=== PATIENT | female | born 1965 | race Asian ===

== ENCOUNTER 2016-12-09 09:41 | Observation (INO) | payer OTHER ==
--- NOTE | 2016-12-09 10:03 | CPEKG ---
Heart Rate: 59 RR Interval: 1017 P-R Interval: 160 QRSD Interval: 94 QT Interval: 408 QTC Interval: 405 P [place]: 61 QRS [place]: 42 T Wave Rising [place]: -30 EKG Severity - BORDERLINE ECG - EKG Impression: SINUS RHYTHM EKG Impression: BORDERLINE T ABNORMALITIES, DIFFUSE LEADS Electronically Signed By: Tyson Curtis 09-Dec-2016 10:35:34
[2016-12-09 10:31] LABS: % IMMATURE GRANULYOCYTES 0.4 % (0.0-1.1); ABSOLUTE IMMATURE GRANULOCYTES 0.02 10^3/uL (0.00-0.10); ADD DIFF? NO; ADD MORPH? NO; ADD SCAN? NO; ATYPICAL LYMPHOCYTE FLAG 10 (0-99); FRAGMENT RBC FLAG 0 (0-99); HEMATOCRIT 40.8 % (38.0-47.0); HEMOGLOBIN 13.1 g/dL (12.6-16.3); LEFT SHIFT FLG 0 (0-99); LIPEMIA HEMOLYSIS FLAG 80 (0-99); MEAN CELL HEMOGLOBIN 27.3 pg (27.9-34.1); MEAN CELL HEMOGLOBIN CONCENTR. 32.1 g/dL (32.4-36.7); MEAN PLATELET VOLUME 9.5 fL (8.7-11.7); PLATELET CLUMPS FLAG 10 (0-99); PLATELET COUNT 251 10^3/uL (150-400); RED CELL DISTRIBUTION WIDTH 13.2 % (11.5-15.2)
[2016-12-09 10:43] LABS: ANION GAP 11 mEq/L (8-16); CALCIUM 9.7 mg/dL (8.5-10.4); CARBON DIOXIDE 28 mEq/l (22-31); CHLORIDE 103 mEq/L (97-110); CREATININE 0.7 mg/dL (0.6-1.0); GLOMERULAR FILTRATION RATE > 60; GLUCOSE 87 mg/dL (70-100); POTASSIUM 3.7 mEq/L (3.5-5.2); SODIUM 142 mEq/L (134-144)
[2016-12-09] MEDS ORDERED: LIDOCAINE 2% VISCOUS 15 ML UDCUP PO ONE (10:45)
[2016-12-09] MEDS ORDERED: MAG HYDROX/AL HYDROX/SIMETH 30 ML UDCUP PO ONE (10:45)
[2016-12-09] MEDS ORDERED: HYOSCYAMINE SULFATE 0.125 MG TAB PO ONE (10:45)
[2016-12-09 10:56] LABS: TROPONIN I < 0.012 ng/mL (0-0.034)
--- NOTE | 2016-12-09 11:17 | EDPHY ---
H & P Stated Complaint: 2 weeks of CP after internastional travel, epigastric pain HPI/ROS: CHIEF COMPLAINT: Chest Pain HISTORY OF PRESENT ILLNESS: Patient complains of several days duration of chest pain. It is retrosternal chest pain. It is a burning sensation. Worse with exertion and associated with some shortness of breath. No lower extremity erythema edema or pain. No abdominal discomfort. No diaphoresis, nausea vomiting. She did return from a long flight from [place] on November 25. The symptoms have developed over the course of the last 2 weeks. No previous incidence of coronary artery disease or PE. She did have an angiogram in 2005 during a repair of an atrial septal defect. No other associated complaints or modifying factors. 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 No wheezing, rhonchi or crackles. Cardiovascular: Regular rate and rhythm. No murmur. Pulses intact distally. Gastrointestinal: Abdomen is soft and nontender Back: non-tender, no bony abnormalities Neurological: A&O, nonfocal, normal gait Skin: Warm and dry, no rash Extremities: Nontender, no pedal edema Psychiatric: Mood and affect normal DIFFERENTIAL DIAGNOSES: Including but not limited to in no particular order: Acute Chest Pain, ACS, Stable Angina, Pneumonia, PE, duodenitis, gastritis, esophagitis, GERD MDM: 10:30 a.m. Retrosternal chest pain that has been present for 3-4 days without cessation. It is exertional and does have some mild dyspnea. Given her recent travel to [place], I have ordered a D-dimer, a BNP. Troponin was already ordered prior to my arrival. EKG was already performed and is negative. I have also ordered a chest x-ray. I suspect this is more likely related to reflux or coronary artery disease and less likely PE. 11:15 a.m. Troponin D-dimer negative. Chest x-ray is clear. I have discussed the case with Dr. Curtis. He will personally evaluate the patient in the emergency department. 11:35 a.m. I discussed case with hospitalist Laura Lipscomb. She is happy to admit the patient but asked that I discuss with cardiology prior to proceeding to see if they prefer to keep her as their patient. 11:45 a.m. I discussed this case with [facility]. She has discussed the case with Dr. Urbina says that he would be happy to provide consultation but prefers that the patient be admitted to the hospitalist. 11:55 a.m. I discussed case with the hospitalist again, Laura Lipscomb. She will admit the patient to Dr. Rodgers. She has requested a PCU bed, observation status. Patient is admitted in stable condition. EKG: Interpreted by Dr. Curtis Normal sinus rhythm. No acute ischemia SUPERVISION: Patient was evaluated in conjunction with the supervising physician. Please see their note for details. Source: Patient, Family Exam Limitations: No limitations - Personal History Current Tetanus/Diphtheria Vaccine: Yes Current Tetanus Diphtheria and Acellular Pertussis (TDAP): Yes - Medical/Surgical History Hx Asthma: No Hx Chronic Respiratory Disease: No Hx Diabetes: No Hx Cardiac Disease: No Hx Renal Disease: No Hx Cirrhosis: No Hx Alcoholism: No Hx HIV/AIDS: No Hx Splenectomy or Spleen Trauma: No Other PMH: MIGRAINES, ATRIAL SEPTAL DEFECT REPAIR IN 2005 - Social History Smoking Status: Never smoked Constitutional: Initial Vital Signs Temperature (C) 97.7 F 12/09/16 09:46 Heart Rate 78 12/09/16 09:46 Respiratory Rate 16 12/09/16 09:46 Blood Pressure 166/107 H 12/09/16 09:46 O2 Sat (%) 98 12/09/16 09:46 O2 Delivery Mode Room Air Allergies/Adverse Reactions: No Known Allergies Allergy (Unverified 07/06/13 09:04) Home Medications: Medication Instructions Recorded Aspirin [Aspir 81] 07/06/13 ZOLMitriptan [Zomig 2.5MG (RX)] 07/06/13 Medical Decision Making - Diagnostics Imaging Results: Imaging Impressions Chest X-Ray 12/09/16 10:45 Impression: Borderline cardiac enlargement, otherwise, negative chest. An intracardiac device is identified. - Data Points Laboratory Results: Laboratory Results 12/09/16 10:10 12/09/16 10:10 12/09/16 12/09/16 12/09/16 10:45 10:10 10:10 WBC 4.92 10^3/uL 10^3/uL (3.80-9.50) RBC 4.80 10^6/uL 10^6/uL (4.18-5.33) Hgb 13.1 g/dL g/dL (12.6-16.3) Hct 40.8 % % (38.0-47.0) MCV 85.0 fL fL (81.5-99.8) MCH 27.3 pg L pg (27.9-34.1) MCHC 32.1 g/dL L g/dL (32.4-36.7) RDW 13.2 % % (11.5-15.2) Plt Count 251 10^3/uL 10^3/uL (150-400) MPV 9.5 fL fL (8.7-11.7) Neut % (Auto) 53.5 % % (39.3-74.2) Lymph % (Auto) 39.0 % % (15.0-45.0) [place] % (Auto) 5.1 % % (4.5-13.0) Eos % (Auto) 1.4 % % (0.6-7.6) Baso % (Auto) 0.6 % % (0.3-1.7) Nucleat RBC Rel Count 0.0 % % (0.0-0.2) Absolute Neuts (auto) 2.63 10^3/uL 10^3/uL (1.70-6.50) Absolute Lymphs (auto) 1.92 10^3/uL 10^3/uL (1.00-3.00) Absolute Monos (auto) 0.25 10^3/uL L 10^3/uL (0.30-0.80) Absolute Eos (auto) 0.07 10^3/uL 10^3/uL (0.03-0.40) Absolute Basos (auto) 0.03 10^3/uL 10^3/uL (0.02-0.10) Absolute Nucleated RBC 0.00 10^3/uL 10^3/uL (0-0.01) Immature Gran % 0.4 % % (0.0-1.1) Immature Gran # 0.02 10^3/uL 10^3/uL (0.00-0.10) D-Dimer 0.28 ug/mLFEU ug/mLFEU (0.00-0.50) Sodium 142 mEq/L mEq/L (134-144) Potassium 3.7 mEq/L mEq/L (3.5-5.2) Chloride 103 mEq/L mEq/L (97-110) Carbon Dioxide 28 mEq/l mEq/l (22-31) Anion Gap 11 mEq/L mEq/L (8-16) BUN 10 mg/dL mg/dL (7-23) Creatinine 0.7 mg/dL mg/dL (0.6-1.0) Estimated GFR > 60 Glucose 87 mg/dL mg/dL (70-100) Calcium 9.7 mg/dL mg/dL (8.5-10.4) Troponin I < 0.012 ng/mL ng/mL (0-0.034) NT-Pro-B Natriuret Pep 12/09/16 09:30 WBC RBC Hgb Hct MCV MCH MCHC RDW Plt Count MPV Neut % (Auto) Lymph % (Auto) [place] % (Auto) Eos % (Auto) Baso % (Auto) Nucleat RBC Rel Count Absolute Neuts (auto) Absolute Lymphs (auto) Absolute Monos (auto) Absolute Eos (auto) Absolute Basos (auto) Absolute Nucleated RBC Immature Gran % Immature Gran # D-Dimer Sodium Potassium Chloride Carbon Dioxide Anion Gap BUN Creatinine Estimated GFR Glucose Calcium Troponin I NT-Pro-B Natriuret Pep 30 pg/mL pg/mL (0-125) Medications Given: Discontinued Medications Al Hydroxide/Mg Hydroxide (Maalox Susp) 30 ml PO ONCE ONE Stop: 12/09/16 10:46 Last Admin: 12/09/16 10:53 Dose: 30 ml Hyoscyamine Sulfate (Levsin, Hyomax-Sl) 0.25 mg PO ONCE ONE Stop: 12/09/16 10:46 Last Admin: 12/09/16 10:53 Dose: 0.25 mg Lidocaine (Lidocaine 2% Viscous) 15 ml PO ONCE ONE Stop: 12/09/16 10:46 Last Admin: 12/09/16 10:53 Dose: 15 ml Departure - Departure Disposition: [facility] Inpatient Acute Clinical Impression: Chest pain Qualifiers: Chest pain type: unspecified Qualified Code(s): R07.9 - Chest pain, unspecified Condition: Good Referrals: Latha Bates MD [Primary Care Provider] - As per Instructions
[2016-12-09] MEDS ORDERED: ONDANSETRON 4 MG/2 ML VIAL IVP PRN (12:17)
[2016-12-09] MEDS ORDERED: HYDROCODONE/APAP 5/325 TAB PO PRN (12:17)
[2016-12-09] MEDS ORDERED: ONDANSETRON DISINTEGRATING 4 MG TAB PO PRN (12:17)
[2016-12-09] MEDS ORDERED: ACETAMINOPHEN 325 MG TAB PO PRN (12:17)
[2016-12-09] MEDS ORDERED: PANTOPRAZOLE SODIUM 40 MG TAB PO SCH (13:00)
[2016-12-09 13:17] VITALS: O2SAT 98
--- NOTE | 2016-12-09 13:47 | GHP ---
[f rep st] HISTORY AND PHYSICAL DATE OF ADMISSION: 12/09/2016 CHIEF COMPLAINT: Chest pain. HISTORY OF PRESENT ILLNESS: This is a 51-year-old female with a history of a repaired ASD and hyper lipidemia, who presents with complaints of burning chest pain intermittently for approximately 2 wee ks since returning from a trip to [place]. The patient reports being in her normal state of health p rior to travel, eating a very high fat content, unusually rich diet for herself while in [place], and then developing what she described as reflux symptoms after returning home, intermittent mid chest burning sensation, worse typically after the patient would eat meals. The patient then noted additi onal symptoms of some dyspnea on exertion while walking her dog as well as substernal chest pressure that began while climbing stairs the day of presentation. The patient decided to call her PCP afte r the constellation of these symptoms all grew. The patient denies any preceding history of chest p ain. Did have a cardiac catheterization with her ASD repair many years ago, and her coronary arteri es were clean at that time. The patient denies any vision changes, had 1 headache while she was on her trip. Otherwise has been headache free. Denies any subjective fevers or chills. She has had s ome odynophagia that she thinks is related to her reflux symptoms. Denies any nausea or vomiting. Denies any diarrhea, constipation, blood in her stools, dysuria, hematuria, lower extremity edema, n umbness, or tingling. The patient denies any palpitations, any orthopnea, or other episodes of subs ternal chest pressure with exertion. PAST MEDICAL HISTORY: 1. ASD, status post repair. 2. Migraine headaches. 3. Hyperlipidemia, diet controlled. 4. Cervical neck pain followed by Neurosurgery. Intermittently takes Neurontin. SOCIAL HISTORY: Negative for tobacco, alcohol, or illicit drugs. FAMILY HISTORY: Positive for coronary artery disease in her father and brothers, many of whom have undergone CABG in their 60s. REVIEW OF SYSTEMS: A 10-point review of systems is negative with the exception of that reported in the HPI. PHYSICAL EXAMINATION: VITAL SIGNS: Blood pressure 148/86, heart rate 59, respiratory rate 16, 97% on room air, 36.8. GENERAL: This is a healthy-appearing, middle-aged female, in no acute distress. HEENT: Notable for moist mucous membranes. Eye exam is negative for any icterus. CARDIAC: Mariana ent is regular rate and rhythm. No murmur appreciated. Question of a subtle splitting of the 2nd h eart sound. PULMONARY: Good respiratory effort. Clear to auscultation bilaterally. GASTROINTESTI NAL: Positive bowel sounds. ABDOMEN: Soft and nontender in all 4 quadrants. MUSCULOSKELETAL: Ne gative for any lower extremity edema. SKIN: Negative for any rashes. NEUROLOGIC: She is alert an d oriented x3. PSYCHIATRIC: She is pleasant and cooperative on interview and examination. DATA: White count 5.9, hematocrit 40.8, platelets 251. Creatinine is 0.7. Troponin less than 0.01 2. BNP of 30. EKG, which I personally reviewed and interpreted, shows sinus rhythm, normal axis wi th nonspecific ST-T flattening leads V2-5. Chest x-ray, which I personally reviewed and interpreted , shows no acute infiltrates or edema. Intracardiac device is noted. ASSESSMENT AND PLAN: This is a 51-year-old female, presenting with chest pain. 1. Acute chest pain. Based on the patient's history, I think there are 2 types of pain here. We n eed to address (1) that is burning and sounds more related to likely reflux and potentially her diet ulices changes recently. The second is the chest pressure brought on by exertion while the patient was ambulating up stairs the morning of presentation. This is associated with shortness of breath and certainly more concerning for possible angina. Plan to admit under observation status to the PCU fo r cardiac monitoring, serial troponins, and EKGs, and a transthoracic echocardiogram. Will addition ally treat with a GI cocktail and proton pump inhibitor. The patient is well known to [facility] and will be seen in consultation by Dr. Urbina who can make additional recommendations on the necessity of cardiac stress testing beyond a rule-out, and where that testing would most appropriately take place . 2. Migraine headaches. Patient is without symptoms at this time. 3. Hyperlipidemia. Patient is being followed closely by Dr. Bates in the outpatient setting and w talon will not check lipid studies here as we would not change her outpatient management. PROPHYLAXIS: Patient is ambulating. DIET: Cardiac. DISPOSITION: I expect in less than 2 midnights, if the patient's cardiac assessments are negative, potentially patient can be discharged later today. I have discussed the case with the emergency glenis m physician. The patient will be triaged to the PCU for care. /[id number]/MODL
[2016-12-09 15:09] VITALS: BP 125/76; PULSE 61; RESP 19; TEMP 97.9
--- NOTE | 2016-12-09 15:19 | ECHO ---
[id number] + + [address] : : [place] [address] : : [phone] + Adult Echocardiographic Report + ------+ :Name: ADELAIDE HUMPHRIES KStudy Date: 12/09/2016 01:30 PM : : Hospital Admission Number: [id number] Locatio n: 209: :: 1965 Gender: Female Height: 63 in : :Age: 51 yrs Race: Weight: 160 lb : :Reason For Study: Chest pain/SOB : : BSA: 1.8 meters 2 : :History: ASD closure : + ------+ MMode/2D Measurements \T\ Calculations IVSd: 0.94 cm LVIDd: 4.1 cm FS: 46.2 % Ao root diam: LVPWd: 0.97 cm LVIDs: 2.2 cm EDV(Teich): 3.1 cm 72.6 ml LA dimension: ESV(Teich): 3.1 cm 16.0 ml EF(Teich): 78.0 % LVLd ap4: 6.5 cm SV(MOD-sp4): EDV(MOD-sp4): 42.0 ml 60.0 ml LVLs ap4: 5.3 cm ESV(MOD-sp4): 18.0 ml EF(MOD-sp4): 70.0 % Normal Measurement Values: + + :LVIDd (3.5-5.7cm) IVSd (0.6-1.1cm) LVPWd (0.6-1.1cm) Aortic Root (2.0-3.7cm)Left Atrium (1.5-4.0cm): :LV Vol(d) (76-115ml) LV Vol(s) (29-48ml) Ejec Fraction (50-65%)PV Cristofer (0.6- 1.2m/s) TV Cristofer (0.4-1.0m/s) : :MV E Cristofer (0.8-1.0m/s)MV A Cristofer (0.3-1.0m/s)LVOT Cristofer (0.7-1.2m/s) Asc Ao Cristofer ( 0.9-1.8m/s) : + + Doppler Measurements \T\ Calculations MV A max cristofer: Ao V2 max: MR max cristofer: TR max cristofer: 79.5 cm/sec 109.9 cm/sec 74.5 cm/sec 191.4 cm/sec Ao max PG: MR max PG: TR max P.8 mmHg 2.2 mmHg 14.7 mmHg RAP systole: 5.0 mmHg RVSP(TR): 19.7 mmHg Left Ventricle The left ventricle is normal in size and function. There is normal left ventricular wall thickness. Left ventricular systolic function is normal. Ejection Fraction = 65-70%. No regional wall motion abnormalities noted. Right Ventricle The right ventricle is normal in size and function. Atria The left atrial size is normal. Right atrial size is normal. Amplatzer septal occluder is seen in the interatrial septum. There does not appear to be a residual shunt. Mitral Valve The mitral valve is normal in structure and function. There is no evidence of mitral valve prolapse. There is no mitral valve stenosis. There is trace mitral regurgitation. Tricuspid Valve Normal tricuspid valve. There is mild tricuspid regurgitation. Aortic Valve The aortic valve is trileaflet. The aortic valve opens well. There is no aortic stenosis. There is no aortic insufficiency. Pulmonic Valve The pulmonic valve is normal in structure and function. Trace pulmonic valvular regurgitation. Great Vessels The aortic root is normal size. Pericardium/Pleural There is no pericardial effusion. Conclusion A complete two-dimensional transthoracic echocardiogram was performed (2D, M-mode, Doppler and color flow Doppler). 1. The left ventricle is normal in size and function. The Ejection Fraction = 65-70%. 2. The aortic valve is normal in structure and function. 3. The mitral valve is normal in structure and function. 4. There is no pericardial effusion. 5. An Amplatzer septal occluder is seen in the interatrial septum. There does not appear to be a residual shunt. 6. The pulmonary artery pressure estimate is with in normal limits. Final Reading Physician: Dionte Elizabeth MD electronically signed on 12/09/2016 03:17 PM Ordering Physician: Nona Rodgers Performed By: Margy Linda, CS
--- NOTE | 2016-12-09 16:46 | PDCARCONS ---
Cardiology Consult Reason for Consult: Chest pain Chief Complaint: Heartburn Requesting Physician: Ana Maria History of Present Illness: 51-year-old female well known to me history of hypertriglyceridemia, history of ASD repair with a normal coronary angiogram 11 years ago presenting with several day history of heartburn with shortness of breath with exertion. This was most pronounced when going up a flight of stairs. She contacted her primary care physician's office who advised her to come the emergency department. She has had an extensive workup including a normal D-dimer, normal troponins x2 with a normal EKG and now a normal echocardiogram and I am asked to comment. Patient was recently traveling in [place] with a trip to [place]. She had significant dietary indiscretion there with increased alcohol intake as well as meet which she does not usually consume. She has been back and went back to work right away. She then began experiencing typical heartburn with burning up the esophagus. She began a proton pump inhibitor with some improvement in symptoms. The exertional shortness of breath began while walking the dog. She again had a pronounced episode when going up a flight of stairs. And she was concerned. She denies PND orthopnea. She denied palpitations syncope or near syncope. History Information - Allergies/Home Medication List Allergies/Adverse Reactions: No Known Allergies Allergy (Unverified 07/06/13 09:04) Home Medications: Aspirin [Aspirin 325 mg (*)] 325 mg PO HS 12/09/16 [Last Taken 12/08/16] Cholecalciferol Vit D3 [Vitamin D3 (*)] 1,000 units PO DAILY 12/09/16 [Last Taken Unknown] Estradiol [Estrace Vaginal (*)] 1 miguel VG MWF 12/09/16 [Last Taken 3 Weeks Ago] ZOLMitriptan [Zomig 2.5MG (*)] 5 mg PO DAILY PRN 12/09/16 [Last Taken 4 Days Ago ] I have personally reviewed and updated: family history, medical history, social history, surgical history - Family History Positive for: CAD. Negative for: father with history of CAD younger than 55 - Social History Smoking Status: Never smoked Alcohol Use: Occasionally Cardiac History - Cardiac History Past Cardiac History: OTHER (ASD repair) NAOMI Risk Evaluation age greater or equal to 65: no greater or equal to 3 CAD risk factors: no known CAD(stenosis greater or eqaul to 50%): no ASA use in past 7 days: no severe angina(greater or equal to 2 episodes in 24hrs): no EKG ST changes greater or equal to 0.5mm: no positive cardiac marker: no Total Score: 0 NAOMI Score: 4.7% risk Physical Exam Temp Pulse Resp BP Pulse Ox 36.6 C 61 19 125/76 H 98 12/09/16 15:08 12/09/16 15:08 12/09/16 15:08 12/09/16 15:08 12/09/16 15:08 Constitutional: no apparent distress, appears nourished Eyes: PERRL Ears, Nose, Mouth, Throat: moist mucous membranes Cardiovascular: regular rate and rhythym, no murmur, rub, or gallop, No systolic murmur, No JVD Peripheral Pulses: 2+: carotid (R), carotid (L), femoral (R), femoral (L) Respiratory: no respiratory distress, no rales or rhonchi Gastrointestinal: normoactive bowel sounds, soft, non-tender abdomen, no palpable masses Skin: warm, normal color Musculoskeletal: full muscle strength, no muscle tenderness Neurologic: AAOx3, sensation intact bilaterally, No weakness Psychiatric: interacting appropriately, not anxious Lymph, Heme, Immunologic: no cervical LAD, no supraclavicular LAD Lab and Imaging 12/09/16 10:10 12/09/16 10:10 WBC 4.92 10^3/uL (3.80-9.50) 12/09/16 10:10 RBC 4.80 10^6/uL (4.18-5.33) 12/09/16 10:10 Hgb 13.1 g/dL (12.6-16.3) 12/09/16 10:10 Hct 40.8 % (38.0-47.0) 12/09/16 10:10 MCV 85.0 fL (81.5-99.8) 12/09/16 10:10 MCH 27.3 pg (27.9-34.1) L 12/09/16 10:10 MCHC 32.1 g/dL (32.4-36.7) L 12/09/16 10:10 RDW 13.2 % (11.5-15.2) 12/09/16 10:10 Plt Count 251 10^3/uL (150-400) 12/09/16 10:10 MPV 9.5 fL (8.7-11.7) 12/09/16 10:10 Neut % (Auto) 53.5 % (39.3-74.2) 12/09/16 10:10 Lymph % (Auto) 39.0 % (15.0-45.0) 12/09/16 10:10 [place] % (Auto) 5.1 % (4.5-13.0) 12/09/16 10:10 Eos % (Auto) 1.4 % (0.6-7.6) 12/09/16 10:10 Baso % (Auto) 0.6 % (0.3-1.7) 12/09/16 10:10 Nucleat RBC Rel Count 0.0 % (0.0-0.2) 12/09/16 10:10 Absolute Neuts (auto) 2.63 10^3/uL (1.70-6.50) 12/09/16 10:10 Absolute Lymphs (auto) 1.92 10^3/uL (1.00-3.00) 12/09/16 10:10 Absolute Monos (auto) 0.25 10^3/uL (0.30-0.80) L 12/09/16 10:10 Absolute Eos (auto) 0.07 10^3/uL (0.03-0.40) 12/09/16 10:10 Absolute Basos (auto) 0.03 10^3/uL (0.02-0.10) 12/09/16 10:10 Absolute Nucleated RBC 0.00 10^3/uL (0-0.01) 12/09/16 10:10 Immature Gran % 0.4 % (0.0-1.1) 12/09/16 10:10 Immature Gran # 0.02 10^3/uL (0.00-0.10) 12/09/16 10:10 D-Dimer 0.28 ug/mLFEU (0.00-0.50) 12/09/16 10:45 Sodium 142 mEq/L (134-144) 12/09/16 10:10 Potassium 3.7 mEq/L (3.5-5.2) 12/09/16 10:10 Chloride 103 mEq/L (97-110) 12/09/16 10:10 Carbon Dioxide 28 mEq/l (22-31) 12/09/16 10:10 Anion Gap 11 mEq/L (8-16) 12/09/16 10:10 BUN 10 mg/dL (7-23) 12/09/16 10:10 Creatinine 0.7 mg/dL (0.6-1.0) 12/09/16 10:10 Estimated GFR > 60 12/09/16 10:10 Glucose 87 mg/dL (70-100) 12/09/16 10:10 Calcium 9.7 mg/dL (8.5-10.4) 12/09/16 10:10 Troponin I < 0.012 ng/mL (0-0.034) 12/09/16 15:35 NT-Pro-B Natriuret Pep 30 pg/mL (0-125) 12/09/16 09:30 Visualized and Interpreted Chest x-ray results: Yes Visualized and Interpreted EKG results: Yes EKG additional interpertation: Normal ECG Echocardiogram: Normal echocardiogram with ASD repair. No regional wall motion abnormalities A/P Assessment: 51-year-old female well known to or history of normal coronary arteries, history of ASD repair now with normal right ventricular size and function no regional wall motion abnormalities negative troponin and stable EKG. Clear history of dyspepsia likely secondary to dietary indiscretion recent travel. Exertional shortness of breath of uncertain etiology. No evidence of acute coronary syndrome based on 2-enzymes. Recommendations are for discharge from the hospital with outpatient treadmill testing. 30 days of proton pump inhibitor. Clinical follow-up Plan: Discharge from hospital. 30 days proton pump inhibitor. Outpatient stress testing. Past Medical History - Personal History Current Tetanus/Diphtheria Vaccine: Yes Current Tetanus Diphtheria and Acellular Pertussis (TDAP): Yes - Medical/Surgical History Hx Asthma: No Hx Chronic Respiratory Disease: No Hx Cardiac Disease: Yes Hx Diabetes: No Hx Renal Disease: No Hx Alcoholism: No Hx Cirrhosis: No Hx HIV/AIDS: No Hx Splenectomy or Spleen Trauma: No Other PMH: MIGRAINES, ATRIAL SEPTAL DEFECT REPAIR IN 2005, HDL - Social History Smoking Status: Never smoked Review of Systems - Review of Systems Constitutional: no symptoms reported EENTM: no symptoms reported Respiratory: shortness of breath Cardiac: no symptoms reported Gastrointestinal/Abdominal: other (Dyspepsia). denies: vomiting, black stools Genitourinary: no symptoms, see HPI Musculoskelatal: no symptoms Skin: no symptoms Neurological: no symptoms Hematologic/Lymphatic: no symptoms reported Immunologic/allergic: no symptoms reported
--- NOTE | 2016-12-09 16:57 | PDDCSUM ---
Discharge Summary Discharge Summary: Discharge note: Patient was admitted for observation today 12/09/2016 for an episode of chest discomfort. Discharge diagnosis: Dyspepsia likely esophagitis. Exertional shortness of breath of uncertain etiology. Medications: Olkk-eyk-hkkbdyl Prilosec nightly for 30 days. Follow-up [facility] this week for ETT. Procedures during this hospitalization echocardiogram revealing normal LV systolic function, ASD repair intact with normal right ventricular size and function. Hospital course: Patient was admitted with atypical chest pain described as dyspepsia over several days after recent trip to [place]. She ruled out for pulmonary embolic disease with negative D-dimer. She had an echocardiogram which did not reveal regional wall motion abnormalities and a intact ASD repair. She had serial cardiac enzymes which revealed no evidence of acute coronary syndrome with a stable EKG. With a GI cocktail and proton pump inhibitor her symptoms have resolved and she is ready for discharge. At the time of my examination her blood pressure was 125/65 heart rate was 70 oxygen saturation was 95% on room air. Her chest was clear cardiac exam revealed a regular rate and rhythm her abdomen was soft nontender with good bowel sounds there is no organomegaly extremities revealed no edema there is no calf tenderness her EKG was normal, troponins were normal and she was stable. She will be followed up with an outpatient treadmill encourage normal activity will pursue aggressive primary prevention with clinical follow-up.
== END 2016-12-09 17:41 | disposition home or self-care (01) ==
LOC: F2W 12:46
PROVIDERS: ADMIT Hospitalist; ATTEND Internal Medicine Interventional Cardiology
DX: R10.13 Epigastric pain (principal); R06.02 Shortness of breath; E78.5 Hyperlipidemia, unspecified
CPT/HCPCS: 71020; 93005; 93306; G0378

== ENCOUNTER → 2017-07-18 | Outpatient (CLI) | payer OTHER | LOC: FIMAGING 07:55 | PROVIDERS: ATTEND Internal Medicine | DX: Z12.31 Encounter for screening mammogram for malignant neoplasm of breast (principal) ==

== ENCOUNTER → 2018-03-28 | Outpatient (CLI) | payer OTHER | LOC: FIMAGING 07:37 | PROVIDERS: ATTEND Psychiatry & Neurology Neurology | DX: G43.009 Migraine without aura, not intractable, without status migrainosus (principal); M47.892 Other spondylosis, cervical region; F07.89 Other personality and behavioral disorders due to known physiological condition ==

== ENCOUNTER → 2018-09-04 | Outpatient (CLI) | payer OTHER | LOC: FIMAGING 08:22 | PROVIDERS: ATTEND Internal Medicine | DX: Z12.31 Encounter for screening mammogram for malignant neoplasm of breast (principal) ==